=== PATIENT | male | born 1960 | race Caucasian/White ===

== ENCOUNTER 2023-12-20 05:11 | Day surgery (SDC) | payer OTHER ==
[2023-12-14 17:02] VITALS: BMI 27.3
[2023-12-20] MEDS ORDERED: LIDOCAINE 1%/EPI 1:100000 (20 ML MULTI DOSE VIAL) ONE (08:11)
[2023-12-20] MEDS ORDERED: COCAINE HCL 4% TOPICAL SOLUTION 4 ML BOTTLE TP ONE (08:53)
[2023-12-20] MEDS ORDERED: ALBUTEROL SO4 HFA INHALER IH ONE (09:05)
[2023-12-20] MEDS ORDERED: FENTANYL CITRATE/PF 50 MCG/ML VIAL ONE ×2 (09:05→11:48)
[2023-12-20] MEDS ORDERED: MIDAZOLAM HCL 2 MG/2 ML SINGLE DOSE VIAL ONE (09:05)
[2023-12-20] MEDS ORDERED: DEXMEDETOMIDINE HCL 200 MCG/2 ML IVPB ONE (09:21)
[2023-12-20] MEDS ORDERED: ACETAMINOPHEN INJECTION 100 ML IVPB ONE (09:21)
[2023-12-20] MEDS ORDERED: PROPOFOL 20 ML ONE (09:22)
[2023-12-20] MEDS ORDERED: HYDROmorphone HCl 2 MG/ML VIAL ONE (09:22)
[2023-12-20] MEDS ORDERED: ROCURONIUM BROMIDE 50 MG/5 ML SYRINGE ONE (09:22)
[2023-12-20] MEDS: ceFAZolin 2 GRAM PREMIX BAG IVPB ONE (09:37)
[2023-12-20] MEDS: LIDOCAINE 1%/EPI 1:100000 (20 ML MULTI DOSE VIAL) IJ ONE ×2 (09:40)
[2023-12-20] MEDS ORDERED: SUGAMMADEX SODIUM 200 MG/2 ML VIAL ONE (11:11)
[2023-12-20] MEDS ORDERED: BACITRACIN ZINC 15 GM TUBE TOPICAL OINTMENT ONE (11:13)
[2023-12-20] MEDS ORDERED: oxyCODONE HCL 5 MG TABLET PO PRN ×2 (11:32)
[2023-12-20] MEDS ORDERED: ONDANSETRON 4 MG/2 ML VIAL IVPUSH PRN (11:32)
[2023-12-20] MEDS ORDERED: LACTATED RINGERS SOLUTION 1,000 ML IV SCH (11:45)
[2023-12-20 14:30] VITALS: BP 114/76; PULSE 96; RESP 20; TEMP 98.2
== END 2023-12-20 15:25 | disposition home or self-care (01) ==
LOC: JASU-SURG 05:11
PROVIDERS: ATTEND Otolaryngology
PROC: 09BV8ZZ Excision of Left Ethmoid Sinus, Via Natural or Artificial Opening Endoscopic (ICD-10-PCS; 2023-12-20)
PROC: 09BU8ZZ Excision of Right Ethmoid Sinus, Via Natural or Artificial Opening Endoscopic (ICD-10-PCS; 2023-12-20)
PROC: 09BK8ZZ Excision of Nasal Mucosa and Soft Tissue, Via Natural or Artificial Opening Endoscopic (ICD-10-PCS; principal; 2023-12-20 09:00)
DX: J32.4 Chronic pansinusitis (principal); J33.9 Nasal polyp, unspecified; R43.0 Anosmia
CPT/HCPCS: 88304-TC; 88311-TC; 94760; J0131